=== PATIENT | female | born 1945 | race Caucasian/White ===

== ENCOUNTER → 2016-07-12 | Outpatient (CLI) | payer MEDICARE, OTHER ==
[~2016-07-12] MED LIST: ASPIRIN81 M2 PO; CALCIUM500 MG PO; CRESTOR PO; LEVOTHROID25 MCG PO; NAPROSYN500 MG PO
--- NOTE | ~2016-07-12 | MY11 ---
[facility] A Service of [facility] [place] RADIOLOGY TEXT RESULTS PATIENT: LUISA MORENO LOCATION: [facility] : 45 UNIT #: [id number] AGE: [address]: Maik Landeros MD SEX: F ORDER DR: [id number] [address] [address] [id number] MR#: [id number] Acc #: [id number] NAME: LUISA MORENO : 1945 SEX: F STUDY DATE/TIME: 07/12/2016 10:32 UNIT: [facility] ROOM: STUDY DESCRIPTION: MY Mammogram Screening [facility] [place] Attending Physician: Maik Landeros M.D. Referring Physician: Maik Landeros M.D. Ordering Physician: Maik Landeros M.D. Primary Care Physician: Maik Landeros M.D. MEDICAL IMAGING REPORT This report is preliminary unless electronic signature is present. EXAM Digital screening mammogram 07/12/2016 HISTORY 70-year-old woman. Positive family history, mother postmenopausal. Weight loss indicated. Annual screen. COMPARISON Mammograms date to 03/26/2010 with most recent 07/11/2015. FINDINGS Digital imaging of each breast was completed utilizing screening protocol. Review includes FDA-approved CAD device. Breast parenchyma is predominately fatty replaced bilaterally. Mild stable parenchymal dominance upper outer right breast location unchanged. There is no breast mass. There are no interval occurring microcalcifications and no suspicious architectural deformity. IMPRESSION Negative mammogram. Annual screening recommended. Patient's over the age of 40 are entered into a reminder system with target due date for the next mammogram. BIRADS: 1 Negative Dictated by... Montana Mendoza M.D. THIS IS AN ELECTRONICALLY VERIFIED REPORT Montana Mendoza M.D. at 07/18/2016 12:02 PM [facility] A Service of [facility] [place] RADIOLOGY TEXT RESULTS PATIENT: LUISA MORENO LOCATION: [facility] : 45 UNIT #: [id number] AGE: [address]: Maik Landeros MD SEX: F ORDER DR: Vic TD: 07/12/2016 11:41 JOB #: [id number] MEDICAL IMAGING REPORT Page 1 of 1
== END | disposition home or self-care (01) ==
LOC: SMAM 09:50
DX: Z12.31 Encounter for screening mammogram for malignant neoplasm of breast (principal); Z80.3 Family history of malignant neoplasm of breast
CPT/HCPCS: G0202